=== PATIENT | female | born 1985 | race Caucasian/White ===

== ENCOUNTER → 2019-09-11 16:02 | Outpatient (CLI) | payer BC, SELFPAY ==
--- NOTE | 2019-09-11 16:09 | DI.US.S_ITS ---
PROCEDURE: US OB >= 14 WEEKS FETUS INDICATIONS: 20 WEEK ANATOMY SCAN OUTSIDE/PRIOR DATING DATA: Last menstrual period (LMP): 04/15/19. LMP-based estimated date of delivery (LIS): 01/21/20 First dating scan (date and location): 09/11/19. Estimated date of delivery (LIS) from first dating scan: 01/21/20. TECHNIQUE: Real-time scanning was performed of the fetus, with image documentation and biometric measurements. COMPARISON: None. FINDINGS: General: A single live intrauterine gestation is present. Presentation: Vertex. Placenta: Placental position is anterior, without previa. Amniotic fluid index: 11 cm, normal range is 5-24 cm. heart rate: 153 beats per minute. Maternal cervical canal: 4 cm long. Normal lower limit is 2.5 cm. biometrics: Biparietal diameter: 5 cm equals 21 weeks 1 day Head circumference: 18.8 cm equals 21 weeks 1 day 16 Abdominal circumference: 16 cm equals 21 weeks 1 day Femur length: 3.5 cm equals 21 weeks 1 day Estimated gestational age from initial scan: not applicable. Composite gestational age from present scan: 21 weeks 1 day Estimated weight and percentile: 404 g, 46th percentile Measurement variability for biometric dating: +/- 7 days from 14 weeks to 15 weeks 6 days gestation, +/- 10 days from 16 weeks to 21 weeks 6 days gestation, +/- 2 weeks from 22 weeks to 27 weeks 6 days gestation, +/- 3 weeks for 28 weeks gestation or later. weight reference: 4500 g or EFW >90/95% is considered macrosomia or large for gestational age. EFW <10% is small for gestational age. EFW 5% or less is considered intra-uterine growth restriction. Anatomic survey: Neuro: Ventricles are non-dilated at less than 10 mm. Cisterna magna is normal at 3-11 mm. Cerebellum is normal in size and morphology. Nuchal skin fold: Normal at less than 6 mm between 14-21 weeks gestational age. Face: Nose and lips, facial profile are normal. Spine: No evidence for spina bifida. Heart: 4-chambered heart is present, with normal ventricular outflow tracts. Diaphragm: Diaphragm is intact. Stomach: Left-sided stomach is present. Kidneys: No hydronephrosis. Normal is less than 5 mm in 2nd trimester, less than 7 mm in 3rd trimester. Cord: 3-vessel cord has orthotopic insertion. Bladder: Normal in size. Extremities: All 4 extremities identified. IMPRESSION: A single live intrauterine is seen. No significant discrepancy is found between the estimated gestational age based on these images and the estimated gestational age based upon the given date of the last menstrual period. No anatomic abnormalities are identified. Dictated by: Adrian Norman M.D. on 09/11/2019 at 17:10 Approved by: Adrian Norman M.D. on 09/11/2019 at 17:13
== END ==
PROVIDERS: Referring Provider Nurse Practitioner Obstetrics & Gynecology; Visit Provider Nurse Practitioner Obstetrics & Gynecology
DX: Z36.89 Encounter for other specified antenatal screening (principal); Z3A.21 21 weeks gestation of pregnancy
CPT/HCPCS: 76811

== ENCOUNTER → 2019-10-25 07:11 | Outpatient (CLI) | payer BC, SELFPAY ==
[2019-10-25 08:22] LABS: Hematocrit 30.8 % (36-46); Hemoglobin 10.6 g/dL (12.0-16.0)
[2019-10-25 08:38] LABS: Glucose Fasting 75 mg/dL (70-100)
[2019-10-25 10:03] LABS: Glucose Tol Interpretation INTERPRETATION
[2019-10-25 10:26] LABS: Glucose 1 Hour 88 mg/dL (70-170)
[2019-10-25 10:49] LABS: Glucose 2 Hour 79 mg/dL (70-140)
== END ==
PROVIDERS: PCP Family Medicine; Referring Provider Nurse Practitioner Obstetrics & Gynecology; Visit Provider Nurse Practitioner Obstetrics & Gynecology
DX: O99.280 Endocrine, nutritional and metabolic diseases complicating pregnancy, unspecified trimester (principal); Z13.1 Encounter for screening for diabetes mellitus; Z3A.28 28 weeks gestation of pregnancy
CPT/HCPCS: 36415; 82951; 82952; 84436; 84443; 85014; 85018

== ENCOUNTER → 2019-12-24 15:41 | Outpatient (ROUT) | payer BC, SELFPAY ==
[2019-12-24 17:46] LABS: Thyroid Stimulating Hormone 1.59 uIU/mL (0.47-4.68)
== END ==
PROVIDERS: PCP Family Medicine; Visit Provider Nurse Practitioner Obstetrics & Gynecology
DX: Z34.90 Encounter for supervision of normal pregnancy, unspecified, unspecified trimester (principal); Z36.85 Encounter for antenatal screening for Streptococcus B; Z3A.36 36 weeks gestation of pregnancy
CPT/HCPCS: 84436; 84443; 87081

== ENCOUNTER → 2020-01-30 09:21 | Outpatient (CLI) | payer BC, SELFPAY ==
[2020-01-30 11:01] LABS: COVID19 -Nasal RAPID Negative (Negative)
== END ==
PROVIDERS: PCP Family Medicine; Visit Provider Student in an Organized Health Care Education/Training Program
DX: Z11.59 Encounter for screening for other viral diseases (principal)
CPT/HCPCS: 87635

== ENCOUNTER 2020-02-01 07:04 | Inpatient (IN) | payer BC, SELFPAY ==
--- NOTE | 2020-02-01 07:23 | P.HPOB_ITS ---
OB HPI Date/Time Date of admission: 02/01/20 Date Patient Seen: 02/01/20 Time Patient Seen: 07:15 History of Present Condition Chief complaint: EVAL OF LABOR : 3 Para: 1 Estimated Date of Delivery: 01/21/20 Estimated Gestational Age (weeks): 41.4 Narrative: Quin Fair is a 34 year old female at 41w4d by sure LMP and is c/w early US. Presents today for post dates IOL accompanied by her . Feeling occasional mild contractions. No LOF or VB. Uncomplicated , received routine care with CNM. Desires unmedicated, low intervention . Indications Indication for induction OB: post dates History of Present care: good care, initiated at week # (11), number of visits (11) and pounds weight gain (22) Dating criteria: LMP confirmed by 1st trimester US Ultrasounds: normal mid trimester US Obstetrical complications: other (anemia) Medical complications: other (hypothyroid) Preadmission Labs Blood type: O (+) positive -: Antibody screen: negative, HBsAG: negative, HIV: negative and RPR/VDLR: negative -: Chlamydia screen: not detected and Gonorrhea screen: not detected -: Rubella: immune HCT: 30.8 HCAB: negative Cell-free DNA: NIPS negative 3 hr GTT: 2 hr Narrative: 2hr GTT: 75/88/79 Prior (ies) History: NSVB 06/22/14, female 7lb 11oz, uncomplicated Evaluation Evaluation Baseline heart rate: 130 Variability: Moderate (11-25) monitor accelerations: Present monitor decelerations: Absent Contraction Frequency (minutes): 7 Uterine Contraction Intensity: Mild Cervical dilation (cm): 4 Cervical effacement (%): 70 station: -1 Laboratory results: COVID19 negative 01/29/20 [facility] Medical History (Updated 02/01/20 @ 07:35 by Flor Mackay CNM) Anxiety Family History (Updated 02/01/20 @ 07:36 by Flor Mackay CNM) Mother Diabetes mellitus Father Hypertension Social History (Updated 02/01/20 @ 07:36 by Flor Mackay CNM) marital status: number of children: 1 household members: spouse and children housing: house education level: college occupational status: employed Smoking Status: Never smoker Meds Home Medications and Allergies Home Medications Medication Instructions Recorded Confirmed Type Iron (ferrous sulfate) 02/01/20 History 02/01/20 History levothyroxine 02/01/20 History Allergies Allergy/AdvReac Type Severity Reaction Status Date / Time No Known Drug Allergies Allergy Verified 02/01/20 07:45 Review of Systems Review of Systems ROS: Yes All systems reviewed with the patient and are negative except as otherwise documented Exam Narrative Exam Narrative: VS: BP 125/78, RR 68 bpm, T 36.5 C temporal Const General: cooperative, healthy appearing and comfortable Orientation: alert and oriented x3 Cardio Rate: regular rate Rhythm: regular rhythm Heart Sounds: S1 normal and S2 normal External Female Exam: normal external appearance Presentation: vertex Estimated Weight (lbs): 7 Extrem General: normal to inspection and full ROM Objective Labs Result Diagrams: 02/01/20 08:20 Assessment and Plan Assessment and Plan Assessment and Plan narrative: A: [place] Hypothyroidism, stable on levothyroxine Anemia No indication for GBS prophylaxis Post dates IOL, favorable FHT Category 1 P: Admit to L&D. IOL consent signed. Patient agrees to start IV pitocin now. Discussed AROM, pt will consider. Planned AMTSL. Labor support PRN. Reassess in 3-4 hours or sooner PRN. Time Spent with Patient Total time spent with greater than 50% in coordination of care (as documented) at patient's floor/unit and/or counseling patient:: 15-24 minutes
[2020-02-01] MEDS: OXYTOCIN PREMIX 30 UNIT/500 ML PLAST..BAG IV (07:40)
[2020-02-01] MEDS: LACTATED RINGERS 1,000 ML 100 ML IV ×2 (07:40→16:45)
[2020-02-01 07:59] VITALS: BP 125/78
[2020-02-01 08:27] LABS: Add Manual Diff / Slide Review NO; Basophils Absolute Auto 100 /uL (0-100); Eosinophils Absolute Auto 400 /uL (0-450); Eosinophils Percent Auto 5.1 % (2-4); Hematocrit 38.4 % (36-46); Lymphocytes Absolute Auto 1200 /uL (1100-4500); Lymphocytes Percent Auto 16.3 % (25-40); Mean Corpuscular HGB Conc 33.8 % (30-36); Mean Corpuscular Hemoglobin 28.8 PG (26-34); Mean Corpuscular Volume 85.4 fL (80-100); Monocytes Absolute Auto 500 /uL (0-900); Monocytes Percent Auto 7.2 % (3-14); Neutrophils Absolute Auto 5000 /uL (1500-7000); Neutrophils Percent Auto 70.4 % (50-75); Platelet Count 155 X10^3/uL (150-400); Red Cell Distribution Width 15.9 % (11.6-14.8); White Blood Cell Count 7.1 X10^3/uL (4.5-11.0)
--- NOTE | 2020-02-01 12:09 | PM.OBPNLAB ---
Date/Time Date Patient Seen: 02/01/20 Time Patient Seen: 12:00 Pain Control Pain control: tolerating well Comments: Pt is sitting on ball talking with and eating lunch. Coping well through mild contractions. Feeling contractions more often, have increased to period-like cramps. Concerned about intense pain and quick with breaking bag of water and declines AROM at this time. Pelvic Exam Dilation (cm): 4 Effacement (%): 70 station: -1 Amniotic membrane status: Intact Comments: Cephalic presentation by SVE @ 0715. CE deferred now. Contractions Contractions on admission: irregular Monitor mode: External Pitocin rate (mU/min): 11 Contraction frequency (min): 2 Contraction duration (min): 1 Contraction pattern: Regular Contraction intensity: Mild Status status: Category l Heart Rate Baseline: 135 Monitor Accelerations: Present Monitor Decelerations: Absent Monitor Variability: Moderate Comments: Assessment and Plan Assessment: induction ongoing Plan: continuous present management Comments: A: Ongoing induction Early labor w/ mild, regular ctx FHT Category 1 P: Continue titrating IV pitocin per protocol. Defer CE and AROM per pt preference. Labor support PRN. Reassess in 3-4 hours or sooner PRN.
--- NOTE | 2020-02-01 15:58 | PM.OBPNLAB ---
Date/Time Date Patient Seen: 02/01/20 Time Patient Seen: 15:45 Pain Control Pain control: tolerating well Comments: Pt is standing up and walking around the room. Coping well through mild contractions that are feeling a little stronger, but can still walk and talk through them. Requesting CE and consents to AROM now. Supportive at bedside. Pelvic Exam Dilation (cm): 4 Effacement (%): 80 station: -1 Amniotic membrane status: Ruptured Comments: AROM @ 1554, small amount of clear fluid Contractions Contractions on admission: irregular Monitor mode: External Pitocin rate (mU/min): 14 Contraction frequency (min): 2 Contraction duration (min): 1 Contraction pattern: Regular Contraction intensity: Mild Status status: Category ll Heart Rate Baseline: 140 Monitor Accelerations: Present Monitor Decelerations: Prolonged (hima to 80 bpm x 3 min w/ prompt return to baseline, no recurrents) Monitor Variability: Moderate Assessment and Plan Assessment: induction ongoing Plan: continuous present management Comments: A: Ongoing induction Coping well w/ mild, regular ctx AROM, clear fluid w/o signs of infection FHT Category 2, overall reassuring P: Continue to titrate IV pitocin per protocol. Labor support PRN. Assess in 3-4 hours or sooner PRN.
--- NOTE | 2020-02-01 19:56 | PM.OBPNLAB ---
Date/Time Date Patient Seen: 02/01/20 Time Patient Seen: 20:10 Pain Control Pain control: tolerating well Comments: Quin is in the tub and coping well through contractions. Feeling them space out and become less intense since pitocin stopped. Declines CE at this time, wants to wait 1-2 hours. Supportive present. VS: BP 131/76, HR 95 bpm, T 36.9 C temporal Pelvic Exam Dilation (cm): 4 Effacement (%): 80 station: -1 Amniotic membrane status: Ruptured Comments: Leaking small amounts of clear fluid. CE deferred Contractions Contractions on admission: irregular Monitor mode: External Pitocin rate (mU/min): 2 Contraction frequency (min): 2 Contraction duration (min): 3 Contraction pattern: Regular Contraction intensity: Mild Status status: Category l Heart Rate Baseline: 135 Monitor Accelerations: Present Monitor Decelerations: Absent Monitor Variability: Moderate Assessment and Plan Assessment: induction ongoing Plan: continuous present management Comments: A: Ongoing induction AROM x 4 hours, clear fluid w/o indication of infection Coping well in early labor FHT Category 1 P: Restart IV pitocin and titrate per protocol. Provide labor support PRN. Reassess in 1-2 hours or sooner PRN.
--- NOTE | 2020-02-01 23:13 | P.PCNOB_ITS ---
Events: Labor Induction Labor & Delivery Delivery date: 02/01/20 Intrapartal events: None Induction method: per pitocin protocol Delivery augmentation: rupture of membranes Delivery monitor: external FHT and external uterine Route of delivery: L&D Laceration Description: Perineal - 1st Degree Delivery repair: chromic (3.0) Estimated blood loss (mL): 200 Anesthesia type: None Narrative: Quin labored well in the tub. [place] a spontaneous urge to push and bear down and was assisted out of the tub, found to be C/C/+1. FHT prolonged decel to hima of 70 bpm x 8 minutes with initiation of pushing. NSVB of viable male in JIMENA position somersaulted through a single loose nuchal and placed on maternal abdomen for drying and stimulation. AMTSL with IV pitocin. Cord clamped by SNM and cut by FOB after cessation of pulses. Cord blood collected. Placenta delivered with gentle cord traction and single maternal push. Placenta appeared intact with 3VC. Fundus firm with minimal bleeding. Small skin tag on left outside labia and small vaginal cyst in laceration removed per pt request. First degree perineal laceration repaired with 3.0 chromic gut under 1% lidocaine local. Hemostasis achieved. QBL 200 mL. initiated and mom and baby left skin to skin. Supportive is at beside and parents are thrilled with their . [place] Baby 1: gender: Male Presentation: vertex Placenta delivery description: Spontaneous cord vessel description: 3 Vessels score (1 min): 8 score (5 min): 9 Plan for aftercare: Routine care. Anticipate discharge in 18 hours.
[2020-02-01] MEDS: KETOROLAC 30 MG/ML VIAL IV (23:45)
[2020-02-02] MEDS: ACETAMINOPHEN 325 MG TABLET 650 MG PO ×3 (06:14→18:55)
[2020-02-02] MEDS: IBUPROFEN 600 MG TABLET PO ×3 (06:14→18:55)
[2020-02-02] MEDS: LANOLIN OINT 7 GM 1 APPLIC TOP (06:16)
[2020-02-02] MEDS: LEVOTHYROXINE 100 MCG TABLET PO (06:16)
[2020-02-02] MEDS: DOCUSATE 100 MG CAPSULE PO (08:45)
[2020-02-02] MEDS: PRENATAL VIT,CALC/IRON/FOLIC 1 TABLET 1 TAB PO (08:45)
[2020-02-02] MEDS: DERMOPLAST SPRAY 20% 60 ML 1 SPRAY TOP (14:32)
[2020-02-02 17:55] VITALS: BP 119/78; PULSE 58; RESP 16; TEMP 36.9
--- NOTE | 2020-02-02 18:00 | PM.OBDS.1 ---
Discharge Providers Provider Date of admission: 02/01/20 07:04 Discharge Date: 02/02/20 Primary care physician: Robbi Amin DO Consults: 02/02/20 23:09 Consult to Braiding Machine Operator Routine Comment: Discharge provider: Flor Mackay CNM Summary Hospital Course Date Patient Seen: 02/02/20 Time Patient Seen: 18:02 Procedures: Hospital Course: Quin is currently sitting up in bed holding baby [place]. Feeling good today and that she is recovering much sooner than after her first . Pain is well-controlled with PO meds. Bleeding is minimal. is going well. Ambulating independently. Voiding without concern. Has not had a BM yet. Tolerating a general diet. Ready to discharge home. Peripartum Data Infant Delivery Method: Natural Vaginal Laceration Description: Perineal - 1st Degree complications: none 1: Gender: Male Disposition of : home Discharge Diagnosis (1) First degree perineal laceration during delivery: Status: Acute Status at Discharge Cognitive/behavioral status at discharge: oriented Functional status at discharge: independent ambulation Overall status at discharge: patient is progressing back to baseline Time Spent with Patient Time attestation: Total time spent providing and/or coordinating discharge services: Time spent: Less than 30 minutes Objective Labs Result Diagrams: 02/01/20 08:20 Exam Vital Signs (past 8 hours): - 02/02/20 17:55 Temperature 98.4 F Pulse Rate 58 L Respiratory Rate 16 Blood Pressure 119/78 Other: Fundus firm @ U. Lochia scant. Perineum well approximated. Discharge Plan Discharge Plan Patient Disposition: Home Discharge orders & Medications Prescriptions: New levothyroxine [Synthroid] 100 mcg Tablet 100 mcg PO 0600 90 Days Qty: 90 RF: 3 acetaminophen 325 mg Tablet 650 mg PO Q6HR PRN (Reason: Pain, Mild (1-3)) 14 Days Qty: 60 RF: 0 ibuprofen 600 mg Tablet 600 mg PO Q6HR PRN (Reason: Pain, Mild (1-3)) 14 Days Qty: 60 RF: 1 Discontinued levothyroxine [Synthroid] 137 mcg tablet 137 mcg PO DAILY RF: 0 1 tablet 1 tab PO DAILY RF: 0 Iron (ferrous sulfate) 1 tablet 1 tab PO DAILY RF: 0 Follow up/Referrals: Robbi Amin DO [Primary Care Provider] - Flor Mackay CNM [[employer] Device Scientist] - None (2 week telehealth on 02/15/20 @ 4:30 p.m. 6 week office visit on 03/14/20 @ 2 p.m.) Diet/Activity/Treatments Diet: Regular Activity: pelvic rest x 6 weeks Visit Report/Discharge Packet Stand Alone Forms: Discharge: Care Discharge Data Primary Care Provider: Robbi Amin
== END 2020-02-02 19:36 | disposition home or self-care (01) | DRG 807 ==
PROVIDERS: Admitting Provider Nurse Practitioner Obstetrics & Gynecology; PCP Family Medicine; Referring Provider Nurse Practitioner Obstetrics & Gynecology; Visit Provider Nurse Practitioner Obstetrics & Gynecology
DX: O48.0 Post-term pregnancy (principal); Z37.0 Single live birth; O69.81X0 Labor and delivery complicated by cord around neck, without compression, not applicable or unspecified; Z3A.41 41 weeks gestation of pregnancy; O70.0 First degree perineal laceration during delivery
CPT/HCPCS: 36415; 59050; 85025; 86850; 86900; 86901; G0379; J1885; J2590